=== PATIENT | female | born 1985 | race Caucasian/White ===

== ENCOUNTER 2017-08-12 13:31 | Emergency (ER) | payer OTHER ==
[~2017-08-12] VITALS: Ht 165.1 cm; Wt 79.4 kg
[~2017-08-12 13:31] MED LIST: 'PARAFON FORTE500 M1 PO; BACTRIM DS 8001 TA1 PO; CATAFLAM50 MG PO; CELEXA20 MG PO; CIPRO250 MG PO; CLEOCIN HCL150 MG PO; CLINDAMYCIN HC300 MG PO; CYCLOBENZAPRINE10 MG PO; HYDROCODONE BIT1 T11 PO; Motrin,Rufen800 MG PO; NAPROSYN500 MG PO; NAPROXEN500 MG PO; NKHM PO; PYRIDIUM200 MG PO; TRAMADOL HCL50 MG PO; ULTRAM50 MG PO
[2017-08-12] MEDS ORDERED: SEPTDS PO (14:23)
== END 2017-08-12 14:29 | disposition home or self-care (01) ==
LOC: ED 13:31
DX: S50.361A Insect bite (nonvenomous) of right elbow, initial encounter (principal); L03.113 Cellulitis of right upper limb; Z98.890 Other specified postprocedural states; Z88.0 Allergy status to penicillin; W57.XXXA Bitten or stung by nonvenomous insect and other nonvenomous arthropods, initial encounter; Y93.89 Activity, other specified; Y92.89 Other specified places as the place of occurrence of the external cause; Y99.9 Unspecified external cause status

== ENCOUNTER 2017-08-23 22:59 | Emergency (ER) | payer OTHER ==
[~2017-08-23] VITALS: Ht 165.1 cm; Wt 79.4 kg
[~2017-08-23 22:59] MED LIST changes: +SEPTDS PO
[2017-08-23] MEDS ORDERED: CLINDAMYCIN HC300 MG PO (23:26)
== END 2017-08-23 23:40 | disposition home or self-care (01) ==
LOC: ED 22:59
DX: T63.391A Toxic effect of venom of other spider, accidental (unintentional), initial encounter (principal); F17.200 Nicotine dependence, unspecified, uncomplicated; Z88.0 Allergy status to penicillin; Y92.89 Other specified places as the place of occurrence of the external cause

== ENCOUNTER → 2018-01-21 | Outpatient (CLI) | payer OTHER ==
[2018-01-31 00:05] LABS: TB1 Ag VALUE 0.67 IU/mL (.)
== END | disposition home or self-care (01) ==
LOC: LAB 12:08
PROVIDERS: Family Medicine
DX: R76.11 Nonspecific reaction to tuberculin skin test without active tuberculosis (principal); M43.8X5 Other specified deforming dorsopathies, thoracolumbar region

== ENCOUNTER → 2019-01-12 | Outpatient (CLI) | payer OTHER | END | disposition home or self-care (01) | LOC: RAD 14:13 | DX: R76.11 Nonspecific reaction to tuberculin skin test without active tuberculosis (principal) ==

== ENCOUNTER 2019-11-02 20:44 | Emergency (ER) | payer BC, OTHER ==
[~2019-11-02] VITALS: Ht 165.1 cm; Wt 79.4 kg
[2019-11-02] MEDS ORDERED: IBUPROFEN600 MG PO (21:53)
== END 2019-11-02 22:22 | disposition home or self-care (01) ==
LOC: ED 20:44
DX: S93.601A Unspecified sprain of right foot, initial encounter (principal); F32.9 Major depressive disorder, single episode, unspecified; F17.200 Nicotine dependence, unspecified, uncomplicated; Z88.0 Allergy status to penicillin; Z79.899 Other long term (current) drug therapy; X58.XXXA Exposure to other specified factors, initial encounter; Y93.89 Activity, other specified; Y92.89 Other specified places as the place of occurrence of the external cause; Y99.8 Other external cause status

== ENCOUNTER 2021-08-31 15:46 | Emergency (ER) | payer BC, OTHER ==
[~2021-08-31] VITALS: Wt 83.9 kg
[~2021-08-31 15:46] MED LIST changes: +IBUPROFEN600 MG PO
[2021-08-31 17:58] LABS: BASO % 0.2 % (0.0-1.0); EOS % 0.2 % (1.0-4.0); HEMATOCRIT 37.8 % (37.0-47.0); LYMPH # 1.8 10*3/uL (1.3-4.4); LYMPH % 9.8 % (27.0-41.0); MEAN CELL VOLUME 83.1 fl (81.0-99.0); MEAN CORPUSCULAR HGB 27.7 pg (27.0-31.0); MEAN CORPUSCULAR HGB CONC 33.3 g/dl (33.0-37.0); MONO # 1.3 10*3/uL (0.1-1.0); MONO % 6.9 % (3.0-9.0); NEUT # 15.4 10*3/uL (2.3-7.9); NEUT % 82.4 % (47.0-73.0); PLATELET COUNT AUTOMATED 202 10*3/uL (130-400); RED BLOOD COUNT 4.55 10*6/uL (4.10-5.10); RED CELL DISTRI WIDTH 12.7 % (0-14.5); WHITE BLOOD COUNT 18.7 10*3/uL (4.8-10.8)
[2021-08-31 18:01] LABS: BILIRUBIN Negative (Negative); BLOOD 1+ (Negative); CLARITY Cloudy (Clear); COLOR Yellow (Yellow); GLUCOSE Negative (Negative); KETONE Negative (Negative); LEUKO ESTERASE 3+ (Negative); NITRITE Positive (Negative); PH 6.5 (4.5-8.0); SPECIFIC GRAVITY 1.015 (1.001-1.030)
[2021-08-31 18:12] LABS: ALKALINE PHOSPHATASE 137 U/L (45-117); BUN 16 mg/dl (7-24); CHLORIDE 101 mmol/L (98-107); CREATININE 0.99 mg/dL (0.55-1.02); LIPASE 28 U/L (73-393); POTASSIUM 3.5 mmol/L (3.5-5.1); SGOT/AST 20 IU/L (3-35); SGPT/ALT 27 U/L (12-78); SODIUM 129 mmol/L (136-145); TOTAL PROTEIN 7.4 gm/dL (6.4-8.2)
[2021-08-31 18:14] LABS: BACTERIA 4+
[2021-08-31 18:15] LABS: WBC TNTC wbc/hpf (0-5)
== END 2021-08-31 23:23 | disposition short-term general hospital (02) ==
LOC: ED 15:46
PROVIDERS: Physician Assistant
DX: A41.9 Sepsis, unspecified organism (principal); N39.0 Urinary tract infection, site not specified; Z88.0 Allergy status to penicillin; Z98.890 Other specified postprocedural states

== ENCOUNTER → 2021-10-29 | Outpatient (CLI) | payer BC, OTHER | END | disposition home or self-care (01) | LOC: RAD 17:29 | PROVIDERS: ATTEND Urology | DX: N20.0 Calculus of kidney (principal) ==

== ENCOUNTER → 2022-12-25 | Outpatient (CLI) | payer OTHER ==
[2022-12-25 09:21] LABS: CHLORIDE 104 mmol/L (98-107); CHOLESTEROL 168 mg/dL (<200); LDL CHOLESTEROL 88 mg/dL (9-159); POTASSIUM 3.8 mmol/L (3.4-5.1); TRIGLYCERIDES 227 mg/dl (<150)
[2022-12-25 09:24] LABS: BUN < 5 mg/dl (9-23)
== END | disposition home or self-care (01) ==
LOC: LAB 08:32
PROVIDERS: ATTEND Family Medicine
DX: R73.9 Hyperglycemia, unspecified (principal); Z79.899 Other long term (current) drug therapy